=== PATIENT | female | born 1960 | race Hispanic/Latino ===

== ENCOUNTER 2024-08-15 09:21 | Emergency (ER) | payer OTHER ==
--- OUTSIDE RECORDS SUMMARY | 2024-08-15 09:23 | XMS REPORT | Continuity of Care Document ---
Author Name Unknown Address [address] [facility] [address] [place] [address] [facility] thconnect Address [address] [facility] [address] [place] [address] Care Team Providers Care Toddler Teacher Name Role Phone DEANROQUE Misha Primary Care Physician Unavailab SUNDAY Bhandari Attending Clinician Unavailable Sunday Head Attending Clinician [phone] Unknown, Attending Attending Clinician Unavailab le Only, Ang Db Test Attending Clinician UnavailNati Patrick PA-C Attending Clinician [phone] NATI MONCADA Attending Clinician Unavailable Doctor Unassigned, [place] Attending Clinician U alpesh Gordon RN, Keturah Arthur Attending Clinician UnavailCleo Tran Attending Clinician [phone] CLEO HUYNH Attending Clinician Unavailable LACI LOGAN Attending Clinician Unavailable Lab, Adc Fam Pob I Attending Clinician Unavailab sheri Payers Payer Name Policy Type Policy Number Effective Date Expirati on Date Source Problems Condition Name Condition Details Condition Category Status Onset Date Resolution Date Last Treatment Date Treating Clinician Comments Source No known active problems No known active problems Disease [facility] Allergies, Adverse Reactions, Alerts Allergy Name Allergy Type Status Severity Reaction(s) Onset Date Inactive Date Treating Clinician Comments Source NO KNOWN ALLERGIE S Drug Class Active [facility] Social History Social Habit Start Date Stop Date Quantity Comments Source Sexual orientation U [facility] History of Social function 2024-02-21 00:00:00 2024-02-21 00:00:00 [facility] Exposure to SARS-CoV-2 (event) 2023-01-31 00:00:00 2023-02-10 12:29:00 Not sure [facility] Tobacco use and exposure 2021-03-16 00:00:00 2021-03-16 00:00:00 Smokeless tobacco non-user [facility] Sex assigned at 1960 00:00:00 1960 00:00:00 [facility] Smoking Status Start Date Stop Date Source Unknown if ever smoked Unive [facility] Never smoked tobacco [facility] Medications Ordered Medication Name Filled Medication Name Start Date Stop Date Current Medication? Ordering Clinician Indication Dosage Frequency Signature (SIG) Comments Components Source benzonatate 200 mg capsule 02-20 00:00: 00 03-03 04:59 :00 No [id number] 200mg Take 1 capsule by mouth 3 (three) times daily as needed for Cough for up to 10 days. [facility] traMADol 50 mg tablet 07-01 00:00: 00 Yes [id number] 50mg Take 1 tablet by mouth every 6 (six) hours as needed for Pain (scale 4-6). [facility] Immunizations Ordered Immunization Name Filled Immunization Name Date Status Comments Source SARS-COV-2 COVID-19 PFIZER VACCINE 2021-01-15 00:00:00 Completed [facility] SARS-COV-2 COVID-19 PFIZER VACCINE 2021-01-15 00:00:00 Completed [facility] SARS-COV-2 COVID-19 PFIZER VACCINE 2021-01-15 00:00:00 Completed [facility] SARS-COV-2 COVID-19 PFIZER VACCINE 2021-01-15 00:00:00 Completed [facility] SARS-COV-2 COVID-19 PFIZER VACCINE 2020-12-24 00:00:00 Completed [facility] SARS-COV-2 COVID-19 PFIZER VACCINE 2020-12-24 00:00:00 Completed [facility] SARS-COV-2 COVID-19 PFIZER VACCINE 2020-12-24 00:00:00 Completed [facility] SARS-COV-2 COVID-19 PFIZER VACCINE 2020-12-24 00:00:00 Completed [facility] SARS-COV-2 COVID-19 PFIZER VACCINE Unknown Completed [facility] Vital Signs Vital Name Observation Time Observation Value Julio abdalla Diastolic blood pressure 2024-02-21 19:51:00 102 mm[Hg] [facility] Systolic blood pressure 2024-02-21 19:51:00 180 mm[Hg] [facility] Heart rate 2024-02-21 19:47:00 109 /min [facility] Body temperature 2024-02-21 19:47:00 37.39 Mercedes [facility] Respiratory rate 2024-02-21 19:47:00 20 /min [facility] Body height 2024-02-21 19:47:00 152.4 cm [facility] Body weight 2024-02-21 19:47:00 75.66 kg [facility] BMI 2024-02-21 19:47:00 32.58 kg/m2 [facility] Oxygen saturation in Arterial blood by Pulse oximetry 2024-02-21 19:47:00 99 /min [facility] Procedures Procedure Date / Time Performed Performing Clinicia n Source POCT SARS-COV-2 ANTIGEN (BINAX NOW) 2024-02-21 20:08:00 Sunday Rose [facility] POCT MOLECULAR STREP 2024-02-21 19:50:00 Unknown, Atte roneying [facility] ASSIGNMENT OF BENEFITS 2023-02-10 17:32:25 Docto r Unassigned, Crowley [facility] Encounters Start Date/Time End Date/Time Encounter Type Admission Type Attending Clinicians Care Facility Care Department Encounter ID Source 2024-02-21 14:20:00 2024-02-21 15:30:05 Outpatient R SUNDAY ROSE [facility] [id number] [facility] 2024-02-21 14:20:00 2024-02-21 15:30:05 Urgent Care Sunday Rose Unknown, [facility]MARIVELDonna [facility] [id number] [id number] [facility] 2023-02-10 12:15:00 2023-02-10 12:30:00 Laboratory Only Only, Ang Db Test Unknown, Attending Coral Nati [facility]?ALEJANDRA [facility] [id number] [id number] [id number] [id number] [facility] 2023-02-10 12:15:00 2023-02-10 12:15:00 Outpatient R CORAL [facility] [id number] [facility] 2023-02-10 00:00:00 2023-02-10 00:00:00 Orders Only Doctor Unassigned, Crowley [facility] 1..840.114 350.1.13.10 4.2.7.2.686 [id number] [facility] 2021-10-01 00:00:00 2021-10-01 00:00:00 Letter (Out) Keturah Godron [facility] [id number] [id number] 4.2.7.2.686 [id number] [facility] 2021-09-30 13:30:00 2021-09-30 13:45:00 Laboratory Only Only, Ang Db Test Lino [facility]?ALEJANDRA [facility] [id number] 350.1.13.10 4.2.7.2.686 [id number] [facility] 2021-09-30 13:30:00 2021-09-30 13:30:00 Outpatient R LINO [facility] [id number] [facility] 2021-03-16 15:20:00 2021-03-16 15:20:00 Outpatient R [facility] [id number] [facility] 2021-01-15 12:00:00 2021-01-15 12:00:00 Outpatient LACI YEH [facility] [id number] [facility] 2020-12-24 12:00:00 2020-12-24 12:00:00 Outpatient LACI YEH [facility] [id number] [facility] 2020-09-23 00:00:00 2020-09-23 00:00:00 Helen Huynh [facility] 1.114 350.1.13.10 4.2.7.2.686 [id number] [facility] 2020-09-23 00:00:00 2020-09-23 00:00:00 Helen Huynh [facility] 1.114 350.1.13.10 4.2.7.2.686 [id number] [facility] 2020-09-22 19:00:00 2020-09-22 19:00:00 Outpatient Yari HUYNH [facility] [id number] [facility] 2020-09-22 18:45:01 2020-09-22 18:58:34 Laboratory Only Lab, Adc Fam Pob I Lino [facility] 1.114 350.1.13.10 4.2.7.2.686 [id number] [facility] 2020-09-22 00:00:00 2020-09-22 00:00:00 Letter (Out) Doctor Unassigned, Crowley [facility] 1.114 350.1.13.10 4.2.7.2.686 [id number] [facility] Results Test Description Test Time Test Comments Results Result Co mments Source [facility] [id number] 19:58:27* Test Item Value Reference Range Interpretation Comme nts POCT Molecular Strep (test c ode = 53765-1) Negative Negative Lab Interpretation (test cod e = [id number]) Normal [facility]
[2024-08-15] MEDS ORDERED: KETOROLAC 30 MG/ML INJ ONE (09:52)
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
[2024-08-15 10:31] VITALS: TEMP 97.1
[2024-08-15 10:32] VITALS: BP 170/90; O2SAT 100
== END 2024-08-15 10:24 | disposition home or self-care (01) ==
LOC: ER 09:21
DX: S16.1XXA Strain of muscle, fascia and tendon at neck level, initial encounter (principal); E11.65 Type 2 diabetes mellitus with hyperglycemia; I10 Essential (primary) hypertension; V49.49XA Driver injured in collision with other motor vehicles in traffic accident, initial encounter
CPT/HCPCS: 82947